=== PATIENT | male | born 1975 | race Caucasian/White ===

== ENCOUNTER 2024-05-20 17:28 | Emergency (ER) | payer OTHER ==
[~2024-05-20] VITALS: Ht 177.8 cm; Wt 82.0 kg
[2024-05-20 17:34] VITALS: O2SAT 100
[2024-05-20] MEDS: ACETAMINOPHEN 500MG TABLET PO ONE (17:45)
[2024-05-20 18:54] VITALS: BP 127/74; PULSE 98; RESP 16; TEMP 36.94740; O2SAT 99
== END 2024-05-20 19:44 | disposition left against medical advice (07) ==
LOC: ER 17:28
DX: R23.3 Spontaneous ecchymoses (principal); R22.0 Localized swelling, mass and lump, head
CPT/HCPCS: 99284; 70450; 70486; A4663; A4606